=== PATIENT | male | born 1960 | race Caucasian/White ===

== ENCOUNTER 2022-04-15 04:21 | Day surgery (SDC) | payer OTHER ==
[2022-04-10 17:00] VITALS: BMI 28.9
[2022-04-15] MEDS ORDERED: PROPOFOL 20 ML ONE (10:43)
[2022-04-15] MEDS ORDERED: MIDAZOLAM HCL 2 MG/2 ML SINGLE DOSE VIAL ONE (10:43)
[2022-04-15] MEDS ORDERED: KETOROLAC TROMETHAMINE 30 MG/1 ML VIAL ONE (10:54)
[2022-04-15 12:26] VITALS: BP 127/82; PULSE 54; TEMP 98
== END 2022-04-15 12:00 | disposition home or self-care (01) ==
LOC: JASU-SURG 04:21
PROVIDERS: ATTEND Urology
PROC: 0TF3XZZ Fragmentation in Right Kidney Pelvis, External Approach (ICD-10-PCS; principal; 2022-04-15 10:00)
DX: N20.0 Calculus of kidney (principal)
CPT/HCPCS: 82962

== ENCOUNTER → 2022-07-22 | Day surgery (SDC) | payer OTHER ==
[2022-06-05 16:16] VITALS: BMI 28.9
[~2022-07-22] MED LIST: KETOROLAC TROMETHAMINE 30 MG/1 ML VIAL ONE; ONDANSETRON 4 MG/2 ML VIAL ONE; PROPOFOL 20 ML ONE
[2022-07-22 15:27] VITALS: BP 138/77; PULSE 52; RESP 16; TEMP 98
== END | disposition home or self-care (01) ==
LOC: JASU-SURG 04:25
PROVIDERS: ATTEND Urology
PROC: 0TF4XZZ Fragmentation in Left Kidney Pelvis, External Approach (ICD-10-PCS; principal; 2022-07-22 14:00)
DX: N20.0 Calculus of kidney (principal)
CPT/HCPCS: 82962

== ENCOUNTER 2022-12-23 04:11 | Day surgery (SDC) | payer OTHER ==
[2022-12-18 11:28] VITALS: BMI 28.9
[2022-12-23] MEDS ORDERED: ONDANSETRON 4 MG/2 ML VIAL ONE (13:09)
[2022-12-23] MEDS ORDERED: MIDAZOLAM HCL 2 MG/2 ML SINGLE DOSE VIAL ONE (13:09)
[2022-12-23 13:50] VITALS: PULSE 58; RESP 18
[2022-12-23 14:29] VITALS: BP 131/79; TEMP 98.8
== END 2022-12-23 14:35 | disposition home or self-care (01) ==
LOC: JASU-SURG 04:11
PROVIDERS: ATTEND Urology
PROC: 0TF3XZZ Fragmentation in Right Kidney Pelvis, External Approach (ICD-10-PCS; principal; 2022-12-23 11:30)
DX: N20.0 Calculus of kidney (principal)
CPT/HCPCS: 82962

== ENCOUNTER 2023-08-04 05:06 | Day surgery (SDC) | payer OTHER ==
[2023-07-31 13:36] VITALS: BMI 27.4
[2023-08-04 08:23] VITALS: RESP 18
[2023-08-04] MEDS ORDERED: FENTANYL CITRATE/PF 50 MCG/ML VIAL ONE (09:37)
[2023-08-04] MEDS ORDERED: MIDAZOLAM HCL 2 MG/2 ML SINGLE DOSE VIAL ONE (09:38)
[2023-08-04] MEDS ORDERED: ONDANSETRON 4 MG/2 ML VIAL ONE (09:38)
[2023-08-04 11:02] VITALS: BP 126/83; PULSE 56; TEMP 97.8
== END 2023-08-04 11:10 | disposition home or self-care (01) ==
LOC: JASU-SURG 05:06
PROVIDERS: ATTEND Urology
PROC: 0TF3XZZ Fragmentation in Right Kidney Pelvis, External Approach (ICD-10-PCS; principal; 2023-08-04 09:49)
DX: N20.0 Calculus of kidney (principal)
CPT/HCPCS: 82962

== ENCOUNTER 2025-07-18 06:14 | Day surgery (SDC) | payer OTHER ==
[2025-07-14 10:42] VITALS: BMI 26.9
[2025-07-18 07:28] VITALS: RESP 18
[2025-07-18] MEDS ORDERED: MIDAZOLAM HCL 2 MG/2 ML SINGLE DOSE VIAL ONE (09:21)
[2025-07-18 13:06] VITALS: BP 127/79; PULSE 58; TEMP 97.9
== END 2025-07-18 12:30 | disposition home or self-care (01) ==
LOC: JASU-SURG 06:14
PROVIDERS: ATTEND Urology
PROC: 0TF3XZZ Fragmentation in Right Kidney Pelvis, External Approach (ICD-10-PCS; principal; 2025-07-18 09:30)
DX: N20.0 Calculus of kidney (principal)
CPT/HCPCS: 82962